=== PATIENT | male | born 1990 | race Caucasian/White ===

== ENCOUNTER 2017-07-12 11:25 | Emergency (ER) | payer MEDICAID, OTHER ==
[~2017-07-12] VITALS: Ht 175.3 cm; Wt 95.0 kg
[2017-07-12 11:28] VITALS: BP 174/86; PULSE 91; RESP 17; TEMP 98.2; O2SAT 96
[2017-07-12] MEDS ORDERED: SODIUM CHLOR 0.9% 1000 ML INJ 1,000 ML IV SCH (12:14)
[2017-07-12] MEDS ORDERED: ONDANSETRON HCL 4 MG/2 ML VIAL IVP ONE (12:15)
[2017-07-12] MEDS ORDERED: SODIUM CHLORIDE 0.9% FLUSH 10 ML FLUSH IV FLUSH PRN (12:15)
[2017-07-12] MEDS ORDERED: PANTOPRAZOLE SODIUM 40 MG VIAL IVP ONE (12:15)
--- NOTE | 2017-07-12 12:18 | PD ---
HPI Chief Complaint: GI Complaint Time Seen by Provider: 12:09 Travel History International Travel<30 days: No Contact w/Intl Traveler<30days: No Traveled to known affect area: No History of Present Illness HPI 26-year-old male presents to the emergency department for evaluation of an episode of vomiting this morning with blood in the vomit. Patient is on vacation from [place]. Patient states he has 2/10 epigastric abdominal pain, aching, without radiation. He states this is a chronic pain. He states he recently had a CT scan done of his abdomen 1 month ago which showed no acute abnormality. He states he felt slightly dizzy earlier, but this is resolved. He has had no further episodes of vomiting. He has no chronic medical problems and takes no prescribed medications. No exacerbating or alleviating factors. Moderate severity. Patient does state that he drank a significant amount of alcohol yesterday and has been for the past 3 days. PFSH Past Medical History Medical History: Denies Significant Hx Tetanus Vaccination: Unknown Influenza Vaccination: No Past Surgical History Surgical History: No Previous Surgery Social History Alcohol Use: Yes (SOCIALLY ON WEEKENDS) Tobacco Use: No Substance Use: No Allergies-Medications (Allergen,Severity, Reaction): Coded Allergies: No Known Allergies (Unverified , 07/12/17) Reported Meds & Prescriptions Reported Meds & Active Scripts Active No Active Prescriptions or Reported Medications Review of Systems Except as stated in HPI: all other systems reviewed are Neg Physical Exam Narrative GENERAL: Well-nourished, well-developed male patient, ambulatory. Afebrile. SKIN: Focused skin assessment warm/dry. HEAD: Normocephalic. Atraumatic. EYES: No scleral icterus. No injection or drainage. NECK: Supple, trachea midline. No JVD or lymphadenopathy. CARDIOVASCULAR: Regular rate and rhythm without murmurs, gallops, or rubs. RESPIRATORY: Breath sounds equal bilaterally. No accessory muscle use. Lung sounds are clear to auscultation. GASTROINTESTINAL: Abdomen soft, non-tender, nondistended. MUSCULOSKELETAL: No cyanosis, or edema. BACK: Nontender without obvious deformity. No CVA tenderness. Data Data Last Documented VS Vital Signs Date Time Temp Pulse Resp B/P (MAP) Pulse Ox O2 Delivery O2 Flow Rate FiO2 07/12/17 11:28 98.2 91 17 174/86 (115) 96 Orders Orders Complete Blood Count With Diff (07/12/17 12:14) Comprehensive Metabolic Panel (07/12/17 12:14) Lipase (07/12/17 12:14) Prothrombin Time / Inr (Pt) (07/12/17 12:14) Act Partial Throm Time (Ptt) (07/12/17 12:14) Iv Access Insert/Monitor (07/12/17 12:14) Ecg Monitoring (07/12/17 12:14) Oximetry (07/12/17 12:14) Ondansetron Inj (Zofran Inj) (07/12/17 12:15) Pantoprazole Inj (Protonix Inj) (07/12/17 12:15) Sodium Chlor 0.9% 1000 Ml Inj (Ns 1000 M (07/12/17 12:14) Sodium Chloride 0.9% Flush (Ns Flush) (07/12/17 12:15) Labs Laboratory Tests Test 07/12/17 12:50 White Blood Count 9.5 TH/MM3 Red Blood Count 5.20 MIL/MM3 Hemoglobin 16.6 GM/DL Hematocrit 46.4 % Mean Corpuscular Volume 89.1 FL Mean Corpuscular Hemoglobin 32.0 PG Mean Corpuscular Hemoglobin Concent 35.9 % Red Cell Distribution Width 13.0 % Platelet Count 317 TH/MM3 Mean Platelet Volume 7.9 FL Neutrophils (%) (Auto) 78.4 % Lymphocytes (%) (Auto) 13.6 % Monocytes (%) (Auto) 6.8 % Eosinophils (%) (Auto) 0.5 % Basophils (%) (Auto) 0.7 % Neutrophils # (Auto) 7.5 TH/MM3 Lymphocytes # (Auto) 1.3 TH/MM3 Monocytes # (Auto) 0.6 TH/MM3 Eosinophils # (Auto) 0.1 TH/MM3 Basophils # (Auto) 0.1 TH/MM3 CBC Comment DIFF FINAL Differential Comment Prothrombin Time 11.1 SEC Prothromb Time International Ratio 1.1 RATIO Activated Partial Thromboplast Time 26.2 SEC Blood Urea Nitrogen 10 MG/DL Creatinine 0.97 MG/DL Random Glucose 97 MG/DL Total Protein 8.2 GM/DL Albumin 4.5 GM/DL Calcium Level 9.0 MG/DL Alkaline Phosphatase 88 U/L Aspartate Amino Transf (AST/SGOT) 27 U/L Alanine Aminotransferase (ALT/SGPT) 60 U/L Total Bilirubin 1.3 MG/DL Sodium Level 143 MEQ/L Potassium Level 3.9 MEQ/L Chloride Level 104 MEQ/L Carbon Dioxide Level 28.5 MEQ/L Anion Gap 11 MEQ/L Estimat Glomerular Filtration Rate 94 ML/MIN Lipase 47 U/L MDM Medical Decision Making Medical Screen Exam Complete: Yes Emergency Medical Condition: Yes Medical Record Reviewed: Yes Differential Diagnosis Gastritis versus pancreatitis versus electrolyte abnormality versus dehydration Narrative Course 26-year-old male presents to the emergency department for evaluation episode of vomit with blood in it this morning. He appears well on exam. Abdominal exam is benign. IV access established. CBC, CMP, lipase, PTT, PT/INR ordered and pending. Patient is given normal saline 1 L IV bolus, Zofran 4 mg IV, Protonix 40 mg IV. CBC shows no acute abnormal. CMP shows no acute abnormality. Lipase is 47. Coags are unremarkable Patient stable for discharge. He will be discharged prescription for Zofran and Protonix. He is encouraged to quit drinking alcohol. The patient was discharged in stable condition with instructions, including return instructions and follow up instructions. Diagnosis Primary Impression: Gastritis Qualified Codes: K29.00 - Acute gastritis without bleeding Referrals: Primary Care Physician call for appointment Patient Instructions: Gastritis (ED), General Instructions Additional Instructions: Take Protonix as directed. Take Zofran as directed as needed for nausea/vomiting. Follow-up with a primary care physician. Return to the emergency department for any acute worsening of symptoms. Med/Other Pt SpecificInfo: Prescription(s) given Scripts Ondansetron Odt (Ondansetron Odt) 4 Mg Tab 4 MG SL Q6HR Y for Nausea/Vomiting, #12 TAB 0 Refills Prov: Moni Romano 07/12/17 Pantoprazole (Protonix) 40 Mg Tab 40 MG PO DAILY for Ulcer Prevention, #30 TAB 0 Refills Prov: Moni Romano 07/12/17 Disposition: 01 DISCHARGE HOME Condition: Stable Moni Romano Jul 12, 2017 12:18
[2017-07-12 13:12] LABS: AUTOMATED NEUTROPHIL # 7.5 TH/MM3 (1.8-7.7); BASOPHIL # 0.1 TH/MM3 (0-0.2); BASOPHIL % 0.7 % (0.0-2.0); EOSINOPHIL # 0.1 TH/MM3 (0-0.4); EOSINOPHIL % 0.5 % (0.0-4.0); HEMATOCRIT 46.4 % (39.0-51.0); HEMOGLOBIN 16.6 GM/DL (13.0-17.0); LYMPH % 13.6 % (9.0-44.0); LYMPHOCYTE # 1.3 TH/MM3 (1.0-4.8); MEAN CELL VOLUME 89.1 FL (80.0-100.0); MEAN CORPUSCULAR HGB CONC 35.9 % (32.0-36.0); MEAN PLATELET VOLUME 7.9 FL (7.0-11.0); MONO % 6.8 % (0.0-8.0); MONOCYTE # 0.6 TH/MM3 (0-0.9); NEUT % 78.4 % (16.0-70.0); PLATELET COUNT 317 TH/MM3 (150-450); WHITE BLOOD COUNT 9.5 TH/MM3 (4.0-11.0)
[2017-07-12 13:21] LABS: INTERNATIONAL NORMALIZED RATIO 1.1 RATIO; PROTHROMBIN TIME - PATIENT 11.1 SEC (9.8-11.6)
[2017-07-12 13:33] LABS: ALBUMIN 4.5 GM/DL (3.4-5.0); ALT (GPT) 60 U/L (12-78); AST (GOT) 27 U/L (15-37); BICARBONATE 28.5 MEQ/L (21.0-32.0); BLOOD UREA NITROGEN 10 MG/DL (7-18); CHLORIDE 104 MEQ/L (98-107); CREATININE 0.97 MG/DL (0.60-1.30); GLOMERULAR FILTRATION RATE 94 ML/MIN (>89); GLUCOSE,RANDOM 97 MG/DL (74-106); SODIUM (NA) 143 MEQ/L (136-145)
[2017-07-12 13:35] LABS: ALKALINE PHOSPHATASE 88 U/L (45-117); TOTAL BILIRUBIN ADULT 1.3 MG/DL (0.2-1.0); TOTAL PROTEIN 8.2 GM/DL (6.4-8.2)
[2017-07-12] MEDS ORDERED: PROT40TA PO (14:35)
[2017-07-12] MEDS ORDERED: ONDA4TAB7 SL (14:35)
== END 2017-07-12 14:54 | disposition home or self-care (01) ==
LOC: NEPD 11:25
DX: K29.00 Acute gastritis without bleeding (principal)
CPT/HCPCS: 80053; 83690; 85025; 85610; 85730; 96374; 96375; 99284; C9113; J2405; J7030